=== PATIENT | male | born 1950 | race Caucasian/White ===

== ENCOUNTER 2023-06-22 07:30 | Inpatient (IN) ==
[~2023-06-22 07:30] MED LIST: Metoclopramide 5 MG/ML VIAL (10 mg) IV PRN; Naloxone 0.4 mg VIAL 0.4 mg/ml 1 ml VIAL IV PRN; Ondansetron 4 mg VIAL 2 MG/ML 2 ml VIAL IV PRN
[2023-06-22 12:43] LABS: Rapid COVID-19 Molecular Undetected (Undetected)
[2023-06-22] MEDS ORDERED: ceFAZolin 2 GM in NS PREMIX 2 GM/100 ML BAG IVPB ONE (12:55)
[2023-06-22] MEDS ORDERED: Tranexamic Acid 1 GM/100ML BAG 2,000 MG/200 ML BAG IV ONE (12:55)
[2023-06-22] MEDS: Lactated Ringers 1000 ml BAG 1,000 ML IV SCH ×2 (13:16→18:44)
[2023-06-22] MEDS: Buffered Lidocaine 1% SYRIN 1 ml INTRADERM ONE (13:16)
[2023-06-22] MEDS ORDERED: ROPIVACAINE 5 MG/ML 30 ML BTL (0.5%) ONE ×2 (13:47→15:39)
[2023-06-22] MEDS ORDERED: fentaNYL 100 mcg/2 ml 50 MCG/ML VIAL ONE ×4 (13:47→17:33)
[2023-06-22] MEDS ORDERED: Midazolam 2 mg/2 ml VIAL 1 mg/ml 2 ml VIAL (2 mg) ONE (13:47)
[2023-06-22] MEDS ORDERED: Dexamethasone IV 4 MG/ML VIAL 1 ml VIAL ONE ×2 (13:47→15:40)
[2023-06-22] MEDS ORDERED: Ondansetron ODT 4 mg TAB 4 MG TAB PO PRN (14:48)
[2023-06-22] MEDS ORDERED: Lactulose 30 ml UDC PO PRN (14:48)
[2023-06-22] MEDS ORDERED: Magnesium Hydroxide LIQ 30 ML UDC PO PRN (14:48)
[2023-06-22] MEDS ORDERED: Morphine 2 MG/ML SYRINGE IV PRN (14:48)
[2023-06-22] MEDS ORDERED: Ondansetron 4 mg VIAL 2 MG/ML 2 ml VIAL IV PRN (14:48)
[2023-06-22] MEDS ORDERED: Propofol 10 MG/ML 20 ML BTL ONE (14:53)
[2023-06-22] MEDS ORDERED: Rocuronium 50 mg VIAL 10 mg/ml 5 ml VIAL (50 mg) ONE (14:53)
[2023-06-22] MEDS ORDERED: Lidocaine 2% PF 5 ML VIAL ONE (14:53)
[2023-06-22] MEDS ORDERED: Ondansetron 4 mg VIAL 2 MG/ML 2 ml VIAL ONE (15:40)
[2023-06-22] MEDS ORDERED: HYDROmorphone 0.5 MG/0.5 ML SYRINGE ONE ×4 (15:43→15:44)
[2023-06-22] MEDS ORDERED: Morphine PF AMP (0.5MG/ML) 5 MG/10 ML AMP ONE (15:43)
[2023-06-22] MEDS: fentaNYL 100 mcg/2 ml 50 MCG/ML VIAL IV PRN (17:34)
[2023-06-22] MEDS: Magnesium Hydroxide LIQ 30 ML UDC PO SCH (20:59)
[2023-06-22] MEDS: ceFAZolin 1 GM ADVAN 1 GM in NS 0.9% 50 ML 50 ML IVPB SCH (23:59)
[2023-06-23 06:13] LABS: Hematocrit 40.2 % (38-53); Hemoglobin 13.7 g/dL (13.2-16.3); Mean Platelet Volume 8.7 fL (7.5-11.2); Platelet Count 320 10^3/uL (150-450)
[2023-06-23 06:24] LABS: Calcium 8.9 mg/dL (8.6-10.3); Creatinine, Serum 0.6 mg/dL (0.67-1.17); Potassium 3.9 mmol/L (3.5-5.0); eGFR CKD-EPI 103.8 (>60)
[2023-06-23] MEDS: Vitamin THERAPEUTIC TAB PO SCH (08:14)
[2023-06-23] MEDS ORDERED: Aspirin EC 81 mg TAB.EC (enteric coated) PO SCH (09:00)
[2023-06-23 11:22] VITALS: BP 132/81
== END 2023-06-23 14:16 | disposition home or self-care (01) | DRG 465 ==
LOC: EDSTATUS 07:30 → AA 11:59 → SSU 14:48
PROVIDERS: ADMIT Orthopaedic Surgery Adult Reconstructive Orthopaedic Surgery; ATTEND Orthopaedic Surgery Adult Reconstructive Orthopaedic Surgery